=== PATIENT | male | born 1965 | race Caucasian/White ===

== ENCOUNTER 2023-09-23 10:33 | Emergency (ER) | payer OTHER ==
[2023-09-23 10:50] VITALS: BP 141/80; PULSE 81; RESP 18; TEMP 98.3; BMI 24.2
[2023-09-23] MEDS ORDERED: FLUORESCEIN NA 1 EA STRIP OD ONE (11:33)
[2023-09-23] MEDS ORDERED: FLUORESCEIN NA 1 EA STRIP ONE (11:36)
== END 2023-09-23 12:27 | disposition home or self-care (01) ==
LOC: JERFT 10:33 → JER 10:33 → JERFT 12:27
DX: H57.11 Ocular pain, right eye (principal); H10.9 Unspecified conjunctivitis; H18.821 Corneal disorder due to contact lens, right eye
CPT/HCPCS: 99283-25

== ENCOUNTER 2024-02-08 15:22 | Emergency (ER) | payer OTHER ==
[2024-02-08 15:28] VITALS: BP 155/86; PULSE 81; RESP 18; TEMP 97.1; BMI 25.8
[2024-02-08] MEDS ORDERED: METOCLOPRAMIDE HCL INJECTION 10 MG/2 ML VIAL ONE (17:19)
[2024-02-08] MEDS ORDERED: ACETAMINOPHEN INJECTION 100 ML IVPB ONE (17:20)
[2024-02-08] MEDS ORDERED: MAG HYDROX/AL HYDROX/SIMETH 30 ML UNIT-DOSE CUP ONE (17:21)
[2024-02-08 17:25] LABS: BASO % 1.4 % (0-2.0); EOS % 4.1 % (0-4.5); HEMATOCRIT 38.6 % (35.4-49); LYMPH % 36.1 % (8-40); MCH 28.8 pg (25.7-33.7); MCHC 33.6 g/dl (32.0-35.9); MEAN CELL VOLUME 85.8 fl (80-96); MEAN PLT VOLUME 7.9 fl (7.5-11.1); MONO % 9.1 % (3.8-10.2); NEUT % 49.3 % (42.8-82.8); PLATELET COUNT 317 10^3/uL (134-434); RDW 14.4 % (11.9-15.9); WHITE BLOOD COUNT 5.4 K/mm3 (4.0-10.0)
[2024-02-08 17:31] LABS: INR 0.98 (0.83-1.09); PROTHROMBIN TIME (PATIENT) 11.3 SEC (9.7-13.0)
[2024-02-08 17:34] LABS: ACTIVATED PTT 35.5 SECONDS (25.2-36.5)
[2024-02-08] MEDS: SODIUM CHLORIDE 0.9% 500 ML INFUS.BAG IV ONE (17:35)
[2024-02-08] MEDS: MAG HYDROX/AL HYDROX/SIMETH 30 ML UNIT-DOSE CUP PO ONE (17:35)
[2024-02-08] MEDS: ACETAMINOPHEN 1000 MG/100 ML BAG IVPB ONE (17:35)
[2024-02-08 17:54] LABS: POTASSIUM 4.1 mmol/L (3.5-5.1)
[2024-02-08 17:56] LABS: CALCIUM 8.9 mg/dL (8.5-10.1)
[2024-02-08 17:57] LABS: ALBUMIN 3.8 g/dl (3.4-5.0); BLOOD UREA NITROGEN 12.2 mg/dL (7-18); MAGNESIUM 2.3 mg/dL (1.8-2.4)
[2024-02-08 18:01] LABS: BILIRUBIN,TOTAL 0.3 mg/dL (0.2-1)
[2024-02-08 18:02] LABS: TOT PROT 7.1 g/dl (6.4-8.2)
[2024-02-08] MEDS: METOCLOPRAMIDE HCL INJECTION 10 MG/2 ML VIAL IVPB ONE (18:03)
== END 2024-02-08 19:00 | disposition home or self-care (01) ==
LOC: JER 15:22
PROC: 3E033NZ Introduction of Analgesics, Hypnotics, Sedatives into Peripheral Vein, Percutaneous Approach (ICD-10-PCS; principal; 2024-02-08)
PROC: 3E033NZ Introduction of Analgesics, Hypnotics, Sedatives into Peripheral Vein, Percutaneous Approach (ICD-10-PCS; 2024-02-08)
DX: R53.83 Other fatigue (principal); R53.1 Weakness; R42 Dizziness and giddiness; R51.9 Headache, unspecified; Z20.822 Contact with and (suspected) exposure to COVID-19
CPT/HCPCS: 0241U-QW; 36415; 71046-TC-FY; 80053; 83690; 83735; 84484; 85025; 85610; 85730; 93005; 93010; 99285-25; J0131

== ENCOUNTER 2024-09-09 20:48 | Emergency (ER) | payer SELFPAY ==
[2024-09-09 20:54] VITALS: BP 150/79; PULSE 105; RESP 16; TEMP 97.6; BMI 25.8
== END 2024-09-09 21:25 | disposition home or self-care (01) ==
LOC: JER 20:48
DX: R22.0 Localized swelling, mass and lump, head (principal); L29.9 Pruritus, unspecified; T78.1XXA Other adverse food reactions, not elsewhere classified, initial encounter
CPT/HCPCS: 99283-25